=== PATIENT | male | born 1975 | race American Indian/Alaskan Native ===

== ENCOUNTER 2017-06-01 22:32 | Emergency (ER) | payer OTHER ==
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
[2017-06-02] MEDS ORDERED: MOTRIN PO ONE (04:01)
[2017-06-02] MEDS ORDERED: FLEXERIL PO ONE (04:01)
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
[2017-06-02 05:14] VITALS: BP 129/78
== END 2017-06-02 05:14 | disposition home or self-care (01) ==
LOC: ED 22:32
DX: M54.16 Radiculopathy, lumbar region (principal); K08.89 Other specified disorders of teeth and supporting structures; I10 Essential (primary) hypertension; E11.9 Type 2 diabetes mellitus without complications; V89.2XXA Person injured in unspecified motor-vehicle accident, traffic, initial encounter; Y93.89 Activity, other specified; Y92.89 Other specified places as the place of occurrence of the external cause; Y99.8 Other external cause status
CPT/HCPCS: 72100; 99283